=== PATIENT | male | born 1990 | race Caucasian/White ===

== ENCOUNTER 2019-02-24 15:46 | Emergency (ER) | payer OTHER ==
[~2019-02-24] VITALS: Ht 185.4 cm; Wt 77.1 kg
== END 2019-02-24 17:25 | disposition home or self-care (01) ==
LOC: ER 15:46
DX: S50.02XA Contusion of left elbow, initial encounter (principal); W18.39XA Other fall on same level, initial encounter; Y93.89 Activity, other specified; Y92.69 Other specified industrial and construction area as the place of occurrence of the external cause; Y99.8 Other external cause status

== ENCOUNTER → 2020-10-21 | Emergency (ER) | payer OTHER ==
[~2020-10-21] VITALS: Ht 185.4 cm; Wt 77.1 kg
[~2020-10-21] MED LIST: AMOX-CLAV 875-1 EACH PO; INTESTINEX680 M2 PO; NAPROXEN375 MG PO
== END | disposition home or self-care (01) ==
LOC: ER 20:44
DX: S61.225A Laceration with foreign body of left ring finger without damage to nail, initial encounter (principal); W45.8XXA Other foreign body or object entering through skin, initial encounter; Y93.89 Activity, other specified; Y92.89 Other specified places as the place of occurrence of the external cause; Y99.8 Other external cause status